=== PATIENT | male | born 1985 | race Caucasian/White ===

== ENCOUNTER 2021-06-19 07:13 | Emergency (ER) | payer SELFPAY ==
[~2021-06-19] VITALS: Ht 175.3 cm; Wt 77.1 kg
[2021-06-19] MEDS ORDERED: ONDANSETRON 4 MG/2 ML VIAL IV ONE ×2 (07:30→09:00)
[2021-06-19] MEDS ORDERED: IV NORMAL SALINE 1000 ML BAG IV ONE (07:30)
[2021-06-19] MEDS ORDERED: KETOROLAC TROMETHAMINE 15 MG INJ IVP ONE (07:30)
[2021-06-19] MEDS ORDERED: ONDANSETRON 4 MG/2 ML VIAL ONE (07:40)
[2021-06-19] MEDS ORDERED: KETOROLAC TROMETHAMINE 15 MG INJ ONE (07:40)
[2021-06-19 07:41] LABS: HEMATOCRIT 44.8 % (36.7-47.1); MEAN CORPUSCULAR HEMOGLOBIN 30.7 uug (23.8-33.4); MEAN CORPUSCULAR VOLUME 87.3 fL (73.0-96.2); PLATELET COUNT (AUTO) 183 K/uL (152-348)
--- NOTE | 2021-06-19 08:05 | NUR ---
[employer] into to do ultrasound.
[2021-06-19 08:12] LABS: BILIRUBIN,DIRECT 0.2 mg/dL (0.0-0.2); BILIRUBIN,TOTAL 1.1 mg/dL (0.2-1.0); POTASSIUM 3.9 mmol/L (3.5-5.1); TOTAL PROTEIN, SERUM 8.3 g/dL (6.4-8.2)
[2021-06-19] MEDS ORDERED: MAG HYDROX/AL HYDROX/SIMETH 30 ML LIQUID UDC PO ONE (09:00)
[2021-06-19 09:06] LABS: *BILIRUBIN,URIN 1+ (NEGATIVE); *BLOOD, URINE NEGATIVE (NEGATIVE); *CLARITY,URINE CLEAR (CLEAR); *COLOR,URINE YELLOW (YELLOW); *KETONES,URINE 4+ (NEGATIVE); *UROBILINOGEN,URINE 0.2 E.U./dl (NORMAL); LEUKOCYTE ESTERASE ,URINE NEGATIVE (NEGATIVE); NITRITE, URINE NEGATIVE (NEGATIVE); PH,URINE 8.5 (5.0-8.0); UGLUCOSE NEGATIVE (NEGATIVE)
[2021-06-19 09:22] LABS: *AMPHETAMINE, URINE NEGATIVE (NEGATIVE); *CANNABINOID, URINE POSITIVE (NEGATIVE); *COCCAINE, URINE NEGATIVE (NEGATIVE); *OPIATE, URINE NEGATIVE (NEGATIVE); *PHENCYCLIDINE SCREEN,URINE NEGATIVE (NEGATIVE)
[2021-06-19] MEDS ORDERED: IBUP-1955 PO (09:40)
[2021-06-19] MEDS ORDERED: ONDA4TAB5 PO (09:40)
--- NOTE | 2021-06-19 09:54 | NUR ---
Removed IV intact, site okay, bandaged. Gave pt RX and d/c instructions, pt verbalized understanding.
[2021-06-19 10:27] LABS: BACTERIA,URINE NONE SEEN /HPF (NONE SEEN); RBC,URINE NONE SEEN /HPF (0-3); SQUAMOUS EPITHELIAL CELL,UR FEW /HPF (NONE SEEN); WBC,URINE 0-3 /HPF (0-3)
== END 2021-06-19 10:05 | disposition home or self-care (01) ==
LOC: ER 07:13
DX: R10.33 Periumbilical pain (principal); R11.2 Nausea with vomiting, unspecified; D72.829 Elevated white blood cell count, unspecified; R16.0 Hepatomegaly, not elsewhere classified
CPT/HCPCS: 36415; 74176; 80048; 80076; 80307; 81001; 83690; 85025; 96361; 96374; 96375; 99284; J1885; J2405; J7030

== ENCOUNTER 2025-02-17 11:50 | Emergency (ER) | payer MEDICAID, OTHER ==
[~2025-02-17] VITALS: Ht 177.8 cm; Wt 78.0 kg
[~2025-02-17 11:50] MED LIST: IBUP-1955 PO; ONDA4TAB5 PO
[2025-02-17 13:01] VITALS: BP 115/72; TEMP 209.3; O2SAT 98
== END 2025-02-17 13:02 | disposition home or self-care (01) ==
LOC: ER 11:57
DX: S93.401A Sprain of unspecified ligament of right ankle, initial encounter (principal); Z79.899 Other long term (current) drug therapy; X58.XXXA Exposure to other specified factors, initial encounter; Y93.89 Activity, other specified; Y92.89 Other specified places as the place of occurrence of the external cause; Y99.8 Other external cause status
CPT/HCPCS: 73610; A4606; A4663